=== PATIENT | female | born 1995 | race Caucasian/White ===

== ENCOUNTER 2019-06-24 20:34 | Emergency (ER) | payer MEDICAID ==
[~2019-06-24] VITALS: Ht 160 cm; Wt 60.8 kg
[2019-06-24 20:39] VITALS: BP 125/73
--- NOTE | 2019-06-24 22:37 | NUR ---
C/O SHARP TOOTHPAIN X MONTHS (RIGHT LOWER SECOND MOLAR). PT REPORTS PAIN HAS BECOME UNBEARABLE. TX WITH TYLENOL, MOTRIN, AND ICE WITH NO RELIEF. PAIN IS A 9/10 SHARP PAIN THAT RADIATES TO THE EVANGELICAL AND CAUSES HEADACHES. DENIES N/V/D. ERMD MADE AWARE OF STATUS. SIDE RAILSX1. WILL CONTINUE TO MONITOR. PMH:DENIES RX:DENIES NKDA
--- NOTE | 2019-06-24 22:37 | NUR ---
PT AMBULATED TO BED 12.
[2019-06-25] MEDS ORDERED: HYDROcodone/APAP 5/325 MG 1 TAB TAB PO ONE (01:35)
[2019-06-25 02:28] VITALS: BP 121/71
== END 2019-06-25 02:28 | disposition home or self-care (01) ==
LOC: MED 20:34
DX: R51 Headache (principal); K08.89 Other specified disorders of teeth and supporting structures
CPT/HCPCS: 99283

== ENCOUNTER 2021-05-12 07:45 | Emergency (ER) | payer MEDICAID ==
[~2021-05-12] VITALS: Ht 162.6 cm; Wt 66.2 kg
[2021-05-12 07:52] VITALS: BP 124/82
[2021-05-12] MEDS ORDERED: CEPH-588 PO (08:07)
[2021-05-12] MEDS ORDERED: PHEN-1877 PO (08:07)
[2021-05-12 08:10] VITALS: BP 124/82
--- NOTE | 2021-05-12 08:10 | NUR ---
NO NURSING INTERVENTIONS PROVIDED
--- NOTE | 2021-05-12 08:10 | NUR ---
Patient discharged with v/s stable. Written and verbal after care instructions ABOUT URINARY TRACT INFECTION given and explained. Patient alert, oriented and verbalized understanding of instructions. Ambulatory with steady gait. All questions addressed prior to discharge. ID band removed. Patient advised to follow up with PMD. Rx of KEFLEX AND PYRIDIUM given. Patient educated on indication of medication including possible reaction and side effects. Opportunity to ask questions provided and answered.
== END 2021-05-12 08:10 | disposition home or self-care (01) ==
LOC: MED 07:45
DX: N39.0 Urinary tract infection, site not specified (principal); Z79.899 Other long term (current) drug therapy
CPT/HCPCS: 81002; 81025; 87086; 99283